=== PATIENT | male | born 1975 | race Caucasian/White ===

== ENCOUNTER 2017-07-18 08:37 | Emergency (ER) | payer SELFPAY ==
[~2017-07-18] VITALS: Ht 165.1 cm; Wt 83.0 kg
[2017-07-18 08:41] VITALS: BP 144/88
--- NOTE | 2017-07-18 08:45 | NUR ---
PATIENT PRESENTS TO ED WITH RIGHT FLANK TO RIGHT TESTICLE ---DYSURIA X 4 DAYS . PT STATES . DENIES V/D; SKIN IS PINK/WARM/DRY; AAOX4 WITH EVEN AND STEADY GAIT; LUNGS CLEAR BL; HR EVEN AND REGULAR; PT DENIES ANY FEVER, CP, SOB, OR COUGH AT THIS TIME; PATIENT STATES PAIN OF 7/10 AT THIS TIME; VSS; PATIENT POSITIONED FOR COMFORT; HOB ELEVATED; BEDRAILS UP X2; BED DOWN. ER MD MADE AWARE OF PT STATUS.
[2017-07-18] MEDS ORDERED: KETOROLAC 30 MG/ML VIAL IVP ONE (09:00)
[2017-07-18] MEDS ORDERED: FAMOTIDINE 20 MG/2 ML VIAL IVP ONE (09:00)
[2017-07-18] MEDS ORDERED: ONDANSETRON 4 MG/2 ML VIAL IVP ONE (09:00)
[2017-07-18] MEDS ORDERED: NACL 0.9% 1,000 ML IV SCH (09:00)
--- NOTE | 2017-07-18 09:12 | NUR ---
PT TO RADIOLOGY VIA
--- NOTE | 2017-07-18 09:19 | NUR ---
RETURNED FROM RADIOLOGY VIA
[2017-07-18 09:36] LABS: BASOPHILS # (AUTO) 0.1 K/uL (0.00-0.22); BASOPHILS % (AUTO) 1.4 % (0.0-2.0); EOSINOPHILS # (AUTO) 0.1 K/uL (0-0.4); EOSINOPHILS % (AUTO) 2.1 % (0.0-4.0); HEMATOCRIT 42.2 % (36-52); HEMOGLOBIN 14.2 g/dL (12.0-18.0); LYMPHOCYTES # (AUTO) 1.5 K/uL (2.0-11.5); LYMPHOCYTES % (AUTO) 33.2 % (20.5-51.1); MEAN CORPUSCULAR HEMOGLOBIN 29 pg (27-31); MEAN CORPUSCULAR HGB CONC 34 g/dL (33-37); MEAN CORPUSCULAR VOLUME 85 fL (80-94); MONOCYTES # (AUTO) 0.5 K/uL (0.8-1.0); NEUTROPHILS # (AUTO) 2.3 K/uL (1.8-7.7); NEUTROPHILS % (AUTO) 53.3 % (42.2-75.2); PLATELET COUNT (AUTO) 152 K/uL (140-450); RED BLOOD CELL COUNT(AUTO) 4.98 MIL/uL (4.20-6.10); RED CELL DISTRIBUTION WIDTH 12.5 % (11.6-13.7); WHITE BLOOD COUNT (AUTO) 4.5 K/uL (4.8-10.8)
[2017-07-18 09:43] LABS: APPEARANCE,URINE CLEAR (CLEAR); BILIRUBIN,URINE NEGATIVE (NEGATIVE); BLOOD, URINE NEGATIVE (NEGATIVE); COLOR,URINE YELLOW (YELLOW); LEUKOCYTE ESTERASE ,URINE NEGATIVE (NEGATIVE); NITRITE, URINE NEGATIVE (NEGATIVE); UGLUCOSE NEGATIVE (NEGATIVE)
[2017-07-18 09:44] LABS: ANION GAP 13.4 (8-16); CARBON DIOXIDE 27.8 mmol/L (21-32); CREATININE 0.8 mg/dL (0.7-1.3); POTASSIUM 4.2 mmol/L (3.5-5.1)
[2017-07-18 09:50] LABS: ALBUMIN 3.9 g/dL (3.4-5.0); TOTAL BILIRUBIN 0.4 mg/dL (0.0-1.0)
[2017-07-18 09:54] LABS: RBC,URINE 0-5 (RARE) /HPF (0-5); WBC,URINE 0-5 (RARE) /HPF (0-5)
--- NOTE | 2017-07-18 10:30 | NUR ---
RESTING WITH OU CLOSED, NO GRIMACE NO MOAN---WILL CONTINUE TO OBSERVE FOR PAIN CONTROL
[2017-07-18 11:52] VITALS: BP 137/81
== END 2017-07-18 11:53 | disposition home or self-care (01) ==
LOC: MED 08:37
DX: N20.0 Calculus of kidney (principal); E78.5 Hyperlipidemia, unspecified
CPT/HCPCS: 36415; 74176; 80053; 81001; 83605; 83690; 85025; 87040; 87086; 96361; 96374; 96375; 99285; J1885; J2405; J3490; J7030

== ENCOUNTER 2022-12-18 06:36 | Emergency (ER) | payer MEDICAID ==
[~2022-12-18] VITALS: Ht 165.1 cm; Wt 81.6 kg
[2022-12-18 06:39] VITALS: BP 187/100; PULSE 73; RESP 17; TEMP 97.6; O2SAT 100
--- NOTE | 2022-12-18 06:39 | NUR ---
to bed ambulatory
--- NOTE | 2022-12-18 06:59 | NUR ---
47 YO M BIB SELF C/O LEFT SIDE FLANK PAIN THAT RADIATES TO ABDOMEN. PT STATES 10/10 PAIN THAT STARTED THIS AM. AXO4. + NAUSEA. - VOMITING. CALL LIGHT WITHIN REACH. ALLERGIES: NKDA MEDHX: HIGH CHOLESTEROL
[2022-12-18] MEDS ORDERED: ONDANSETRON 4 MG ODT PO ONE (07:00)
[2022-12-18] MEDS ORDERED: KETOROLAC 30 MG/ML VIAL IM ONE (07:00)
[2022-12-18 07:09] LABS: APPEARANCE,URINE CLEAR (CLEAR); BILIRUBIN,URINE NEGATIVE (NEGATIVE); BLOOD, URINE NEGATIVE (NEGATIVE); COLOR,URINE YELLOW (YELLOW); LEUKOCYTE ESTERASE ,URINE NEGATIVE (NEGATIVE); NITRITE, URINE NEGATIVE (NEGATIVE); PH,URINE 6.5 (5.0-9.0); UGLUCOSE NEGATIVE (NEGATIVE)
[2022-12-18 07:43] LABS: BASOPHILS % (AUTO) 0.5 % (0.0-2.0); EOSINOPHILS # (AUTO) 0.2 K/uL (0-0.4); EOSINOPHILS % (AUTO) 3.8 % (0.0-4.0); HEMATOCRIT 42.4 % (36-52); HEMOGLOBIN 14.3 g/dL (12.0-18.0); LYMPHOCYTES # (AUTO) 2.4 K/uL (2.0-11.5); LYMPHOCYTES % (AUTO) 42.8 % (20.5-51.1); MEAN CORPUSCULAR HEMOGLOBIN 29 pg (27-31); MEAN CORPUSCULAR HGB CONC 34 g/dL (33-37); MEAN CORPUSCULAR VOLUME 85.9 fL (80-94); MONOCYTES # (AUTO) 0.6 K/uL (0.8-1.0); MONOCYTES % (AUTO) 9.9 % (1.7-9.3); NEUTROPHILS # (AUTO) 2.4 K/uL (1.8-7.7); PLATELET COUNT (AUTO) 173 K/uL (140-450); RED BLOOD CELL COUNT(AUTO) 4.94 MIL/uL (4.20-6.10); RED CELL DISTRIBUTION WIDTH 13.4 % (11.6-13.7); WHITE BLOOD COUNT (AUTO) 5.6 K/uL (4.8-10.8)
--- NOTE | 2022-12-18 07:45 | NUR ---
RECEIVED REPORT FROM LANDON URRUTIA PT IS A 47 YO M BIB SELF C/O LEFT SIDE FLANK PAIN THAT RADIATES TO ABDOMEN. PT STATES 10/10 PAIN THAT STARTED THIS AM. + NAUSEA + VOMITTING.. PT DENIES DIARREHA; SKIN IS PINK/WARM/DRY; AAOX4 WITH EVEN AND STEADY GAIT; LUNGS CLEAR BL; HR EVEN AND REGULAR; PT DENIES ANY FEVER, CP, SOB, OR COUGH AT THIS TIME; VSS; PATIENT POSITIONED FOR COMFORT; HOB ELEVATED; BEDRAILS UP X2; BED DOWN. ER MD MADE AWARE OF PT STATUS. ALLERGIES: NKDA MEDHX: HIGH CHOLESTEROL UPON ASSESMENT PT VITALS WNL. PT HAS BEEN MEDICATED. PT STATES HE IS NOT IN ANY PAIN AT THIS TIME. PT STATES HE FEELS BETTER. PT HAS BEEN OFFERED A BLANKET. EXPLAINED TO PT PLAN OF CARE. PT IS RESTING IN THE BED COMFORTABLY, WILL CONTINUE MONITOR PT FOR ANY ADVERSE REACTION.
[2022-12-18 07:49] LABS: ALBUMIN 4.1 g/dL (3.4-5.0); ANION GAP 13.2 (8-16); CARBON DIOXIDE 26.4 mmol/L (21-32); CREATININE 0.9 mg/dL (0.6-1.3); POTASSIUM 3.6 mmol/L (3.5-5.1); TOTAL BILIRUBIN 0.7 mg/dL (0.0-1.0)
--- NOTE | 2022-12-18 07:50 | NUR ---
PT HAS BEEN AWARE OF PLAN OF CARE. PLACED PT PN MONITOR. CALL LIGHT WITH IN REACH.
[2022-12-18 08:14] VITALS: O2SAT 98
[2022-12-18] MEDS ORDERED: IBUP-2213 PO (09:05)
[2022-12-18] MEDS ORDERED: MIRABULK PO (09:05)
--- NOTE | 2022-12-18 09:33 | NUR ---
Patient discharged with v/s stable. Written and verbal after care instructions given and explained. Patient verbalized understanding. Ambulatory with steady gait. All questions addressed prior to discharge. Advised to follow up with PMD.
--- NOTE | 2022-12-18 09:34 | NUR ---
The patient's care was reviewed and supervised by Shirley Ponce, RN, RN.
[2022-12-18 09:35] VITALS: BP 117/76; PULSE 60; RESP 14; TEMP 97.7; O2SAT 60
== END 2022-12-18 09:35 | disposition home or self-care (01) ==
LOC: MED 06:36
DX: K29.70 Gastritis, unspecified, without bleeding (principal); I10 Essential (primary) hypertension; Z79.899 Other long term (current) drug therapy
CPT/HCPCS: 36415; 74176; 80053; 81003; 83690; 85025; 96372; 99285; J1885; Q0162

== ENCOUNTER 2023-08-25 15:26 | Emergency (ER) | payer SELFPAY ==
[~2023-08-25] VITALS: Ht 165.1 cm; Wt 81.6 kg
[~2023-08-25 15:26] MED LIST: IBUP-2213 PO; MIRABULK PO
[2023-08-25 15:47] VITALS: BP 148/94; PULSE 91; RESP 16; TEMP 98.2; O2SAT 99
[2023-08-25] MEDS: methocarbamoL 500 MG TAB PO STA (16:47)
[2023-08-25] MEDS: ACETAMINOPHEN 325 MG TAB PO ONE (16:51)
[2023-08-25] MEDS: KETOROLAC 30 MG/ML VIAL IM ONE (16:52)
[2023-08-25] MEDS: LIDOCAINE 5% 1 EA PATCH TP ONE (16:52)
[2023-08-25 18:25] LABS: APPEARANCE,URINE CLEAR (CLEAR); BILIRUBIN,URINE NEGATIVE (NEGATIVE); BLOOD, URINE NEGATIVE (NEGATIVE); COLOR,URINE YELLOW (YELLOW); LEUKOCYTE ESTERASE ,URINE NEGATIVE (NEGATIVE); NITRITE, URINE NEGATIVE (NEGATIVE); PROTEIN,URINE NEGATIVE (NEGATIVE); UGLUCOSE NEGATIVE (NEGATIVE); UROBILINOGEN,URINE 0.2 EU/dL (0.2 - 1)
[2023-08-25] MEDS ORDERED: IBUP-2213 PO (18:35)
[2023-08-25] MEDS ORDERED: METH-1681 PO (18:35)
[2023-08-25] MEDS ORDERED: LID5T TP (18:35)
== END 2023-08-25 18:43 | disposition home or self-care (01) ==
LOC: MED 15:26
DX: M54.50 Low back pain, unspecified (principal); R30.0 Dysuria; Z87.448 Personal history of other diseases of urinary system; Z79.899 Other long term (current) drug therapy
CPT/HCPCS: 72110; 81003; 96372; 99284; J1885